=== PATIENT | male | born 1950 | race Caucasian/White ===

== ENCOUNTER 2016-02-20 09:02 | Outpatient (CLI) | payer MEDICARE, BC | END 2016-02-20 09:03 | disposition home or self-care (01) | DX: E11.9 Type 2 diabetes mellitus without complications (principal) ==

== ENCOUNTER 2016-02-23 09:59 | Outpatient (CLI) | payer MEDICARE, BC | END 2016-02-23 10:00 | disposition home or self-care (01) | DX: E11.9 Type 2 diabetes mellitus without complications (principal) ==

== ENCOUNTER 2016-06-14 08:20 | Outpatient (CLI) | payer MEDICARE, BC | END 2016-06-14 08:21 | disposition home or self-care (01) | DX: I25.10 Atherosclerotic heart disease of native coronary artery without angina pectoris (principal); E11.9 Type 2 diabetes mellitus without complications; E78.5 Hyperlipidemia, unspecified; I10 Essential (primary) hypertension; Z12.5 Encounter for screening for malignant neoplasm of prostate | CPT/HCPCS: 36415; 80053; 80061; 83036; G0103 ==

== ENCOUNTER 2016-09-13 09:02 | Outpatient (CLI) | payer MEDICARE, BC ==
[2016-09-13 20:11] LABS: HEMOGLOBIN A1C 0.81 g/dL
== END 2016-09-13 09:03 | disposition home or self-care (01) ==
LOC: LAB.S 09:02
PROVIDERS: ATTEND Family Medicine
DX: E11.9 Type 2 diabetes mellitus without complications (principal)
CPT/HCPCS: 36415; 83036

== ENCOUNTER 2017-01-03 09:08 | Outpatient (CLI) | payer MEDICARE, BC ==
[2017-01-03 18:43] LABS: HEMOGLOBIN A1C 0.77 g/dL
[2017-01-03 19:00] LABS: ALBUMIN/GLOBULIN RATIO 1.1 (1.0-2.2); BILIRUBIN,TOTAL 0.7 mg/dL (0.2-1.0); BUN - BLOOD UREA NITROGEN 23 mg/dL (6-20); CALCIUM 8.6 mg/dL (8.5-10.3); CARBON DIOXIDE - CO2 26 mmol/L (21-32); CHLORIDE 105 mmol/L (101-111); CHOL/HDL RATIO 4.8 (<5.0); CHOLESTEROL 134 mg/dL; CREATININE 1.2 mg/dL (0.6-1.2); GFR - MDRD 60 (>89); GLUCOSE 96 mg/dL (70-100); HDL CHOLESTEROL 28 mg/dL; LDL/HDL RATIO 2.5 (<3.6); POTASSIUM 4.5 mmol/L (3.5-5.0); SODIUM 136 mmol/L (135-145); TOTAL PROTEIN 7.2 g/dL (6.7-8.2); TRIGLYCERIDES 180 mg/dL; VLDL CHOLESTEROL 36 mg/dL
== END 2017-01-03 09:09 ==
LOC: LAB.S 09:08
PROVIDERS: ATTEND Family Medicine
DX: E11.9 Type 2 diabetes mellitus without complications (principal); E78.5 Hyperlipidemia, unspecified; I25.10 Atherosclerotic heart disease of native coronary artery without angina pectoris; I10 Essential (primary) hypertension
CPT/HCPCS: 36415; 80053; 80061; 82043; 83036

== ENCOUNTER 2017-01-27 13:20 | Outpatient (CLI) | payer MEDICARE, BC | END 2017-01-27 23:59 | disposition home or self-care (01) | LOC: RT 13:20 | PROVIDERS: ATTEND Internal Medicine Cardiovascular Disease | DX: I70.219 Atherosclerosis of native arteries of extremities with intermittent claudication, unspecified extremity (principal) | CPT/HCPCS: 93005 ==

== ENCOUNTER 2017-03-28 08:21 | Outpatient (CLI) | payer MEDICARE, BC ==
[2017-03-28 11:27] LABS: HB2 TOTAL 15.4 g/dL; HEMOGLOBIN A1C 0.82 g/dL
[2017-03-28 13:32] LABS: ALBUMIN 3.9 g/dL (3.2-5.5); ALBUMIN/GLOBULIN RATIO 1.1 (1.0-2.2); ALKALINE PHOSPHATASE 71 IU/L (42-121); ALT ALANINE AMINOTRANSFERASE 31 IU/L (10-60); AST ASPARTATE AMINOTRANSFERASE 24 IU/L (10-42); BILIRUBIN,TOTAL 0.8 mg/dL (0.2-1.0); BUN - BLOOD UREA NITROGEN 19 mg/dL (6-20); CALCIUM 8.8 mg/dL (8.5-10.3); CARBON DIOXIDE - CO2 27 mmol/L (21-32); CHLORIDE 101 mmol/L (101-111); CHOL/HDL RATIO 4.5 (<5.0); CHOLESTEROL 158 mg/dL; CREATININE 1.1 mg/dL (0.6-1.2); GFR - MDRD 67 (>89); GLUCOSE 138 mg/dL (70-100); HDL CHOLESTEROL 35 mg/dL; LDL CHOLESTEROL,CALCULATED 87 mg/dL; LDL/HDL RATIO 2.5 (<3.6); SODIUM 136 mmol/L (135-145); TOTAL PROTEIN 7.3 g/dL (6.7-8.2); VLDL CHOLESTEROL 36 mg/dL
== END 2017-03-28 08:22 | disposition home or self-care (01) ==
LOC: LAB.F 08:21
PROVIDERS: ATTEND Family Medicine
DX: I73.9 Peripheral vascular disease, unspecified (principal); E11.9 Type 2 diabetes mellitus without complications; I25.10 Atherosclerotic heart disease of native coronary artery without angina pectoris; I10 Essential (primary) hypertension
CPT/HCPCS: 36415; 80053; 80061; 83036; 83721

== ENCOUNTER 2017-06-13 08:00 | Outpatient (CLI) | payer MEDICARE, BC ==
[2017-06-13 11:04] LABS: CALCIUM 9.1 mg/dL (8.5-10.3); CREATININE 1.1 mg/dL (0.6-1.2)
[2017-06-13 11:18] LABS: HB2 TOTAL 16.5 g/dL; HEMOGLOBIN A1C 1.1 g/dL; HEMOGLOBIN A1C % 8.3 % (4.6-6.2)
== END 2017-06-13 08:01 | disposition home or self-care (01) ==
LOC: LAB.F 08:00
PROVIDERS: ATTEND Family Medicine
DX: E11.9 Type 2 diabetes mellitus without complications (principal); I73.9 Peripheral vascular disease, unspecified; I10 Essential (primary) hypertension; F32.9 Major depressive disorder, single episode, unspecified
CPT/HCPCS: 36415; 80048; 83036

== ENCOUNTER 2017-09-12 08:15 | Outpatient (CLI) | payer MEDICARE, BC ==
[2017-09-12 12:40] LABS: HB2 TOTAL 14.4 g/dL; HEMOGLOBIN A1C 0.84 g/dL; HEMOGLOBIN A1C % 7.5 % (4.6-6.2)
== END 2017-09-12 08:16 | disposition home or self-care (01) ==
LOC: LAB.F 08:15
PROVIDERS: ATTEND Family Medicine
DX: F32.9 Major depressive disorder, single episode, unspecified (principal); I73.9 Peripheral vascular disease, unspecified; I10 Essential (primary) hypertension; E11.9 Type 2 diabetes mellitus without complications
CPT/HCPCS: 36415; 83036

== ENCOUNTER 2017-12-13 09:02 | Outpatient (CLI) | payer MEDICARE, BC ==
[2017-12-13 17:49] LABS: BASOPHILS # (AUTO) 0.1 10^3/uL (0.0-0.1); BASOPHILS % (AUTO) 0.8 %; EOSINOPHILS # (AUTO) 0.1 10^3/uL (0.0-0.7); EOSINOPHILS % (AUTO) 0.7 %; HGB - HEMOGLOBIN 14.6 g/dL (14.0-18.0); LYMPHOCYTES # (AUTO) 1.2 10^3/uL (1.5-3.5); LYMPHOCYTES % (AUTO) 16.1 %; MEAN CORPUSCULAR HGB CONC 33.8 g/dL (32.0-36.0); MEAN CORPUSCULAR VOLUME 94.8 fL (80.0-94.0); MEAN PLATELET VOLUME 8.1 fL (7.4-11.4); MONOCYTES # (AUTO) 0.6 10^3/uL (0.0-1.0); MONOCYTES % (AUTO) 8.5 %; NEUTROPHILS # (AUTO) 5.6 10^3/uL (1.5-6.6); NEUTROPHILS % (AUTO) 73.9 %; PLT - PLATELET COUNT 163 10^3/uL (130-450); RED BLOOD COUNT 4.57 10^6/uL (4.70-6.10); RED CELL DISTRIBUTION WIDTH 13.9 % (12.0-15.0); WHITE BLOOD COUNT 7.6 x10^3/uL (4.8-10.8)
[2017-12-13 18:10] LABS: ALBUMIN 3.8 g/dL (3.2-5.5); ALBUMIN/GLOBULIN RATIO 1.1 (1.0-2.2); ALKALINE PHOSPHATASE 97 IU/L (42-121); ALT ALANINE AMINOTRANSFERASE 16 IU/L (10-60); AST ASPARTATE AMINOTRANSFERASE 15 IU/L (10-42); BILIRUBIN,TOTAL 0.5 mg/dL (0.2-1.0); BUN - BLOOD UREA NITROGEN 20 mg/dL (6-20); CALCIUM 8.6 mg/dL (8.5-10.3); CARBON DIOXIDE - CO2 28 mmol/L (21-32); CHLORIDE 103 mmol/L (101-111); CHOL/HDL RATIO 3.4 (<5.0); CHOLESTEROL 129 mg/dL; GFR - MDRD 74 (>89); GLUCOSE 128 mg/dL (70-100); HDL CHOLESTEROL 38 mg/dL; LDL CHOLESTEROL,CALCULATED 68 mg/dL; LDL/HDL RATIO 1.8 (<3.6); SODIUM 137 mmol/L (135-145); TOTAL PROTEIN 7.2 g/dL (6.7-8.2); VLDL CHOLESTEROL 23 mg/dL
[2017-12-13 18:49] LABS: HB2 TOTAL 15.7 g/dL; HEMOGLOBIN A1C 0.81 g/dL; HEMOGLOBIN A1C % 6.9 % (4.6-6.2)
== END 2017-12-13 09:03 | disposition home or self-care (01) ==
LOC: LAB.F 09:02
PROVIDERS: ATTEND Nurse Practitioner Family
DX: I10 Essential (primary) hypertension (principal); E11.9 Type 2 diabetes mellitus without complications; E78.5 Hyperlipidemia, unspecified
CPT/HCPCS: 36415; 80053; 80061; 82043; 83036; 83721; 84443; 85025

== ENCOUNTER 2018-06-12 07:20 | Outpatient (CLI) | payer MEDICARE, BC ==
[2018-06-12 10:54] LABS: HB2 TOTAL 13.8 g/dL; HEMOGLOBIN A1C 0.78 g/dL; HEMOGLOBIN A1C % 7.3 % (4.6-6.2)
== END 2018-06-12 07:21 | disposition home or self-care (01) ==
LOC: LAB.F 07:20
PROVIDERS: ATTEND Nurse Practitioner Family
DX: E11.9 Type 2 diabetes mellitus without complications (principal)
CPT/HCPCS: 36415; 83036

== ENCOUNTER 2018-09-14 10:54 | Outpatient (CLI) | payer MEDICARE, BC ==
[2018-09-14 17:51] LABS: ALBUMIN 3.9 g/dL (3.2-5.5); ALBUMIN/GLOBULIN RATIO 1.1 (1.0-2.2); ALKALINE PHOSPHATASE 96 IU/L (42-121); ALT ALANINE AMINOTRANSFERASE 22 IU/L (10-60); AST ASPARTATE AMINOTRANSFERASE 18 IU/L (10-42); BILIRUBIN,TOTAL 0.9 mg/dL (0.2-1.0); BUN - BLOOD UREA NITROGEN 18 mg/dL (6-20); CALCIUM 9.2 mg/dL (8.5-10.3); CARBON DIOXIDE - CO2 27 mmol/L (21-32); CHLORIDE 102 mmol/L (101-111); CHOL/HDL RATIO 3.8 (<5.0); CHOLESTEROL 133 mg/dL; CREATININE 1.1 mg/dL (0.6-1.2); GFR - MDRD 66 (>89); GLUCOSE 142 mg/dL (70-100); HDL CHOLESTEROL 35 mg/dL; LDL CHOLESTEROL,CALCULATED 77 mg/dL; LDL/HDL RATIO 2.2 (<3.6); SODIUM 139 mmol/L (135-145); TOTAL PROTEIN 7.5 g/dL (6.7-8.2); VLDL CHOLESTEROL 21 mg/dL
[2018-09-14 17:54] LABS: HB2 TOTAL 14.7 g/dL; HEMOGLOBIN A1C 0.81 g/dL; HEMOGLOBIN A1C % 7.2 % (4.6-6.2)
== END 2018-09-14 10:55 | disposition home or self-care (01) ==
LOC: LAB.S 10:54
PROVIDERS: ATTEND Internal Medicine
DX: E78.5 Hyperlipidemia, unspecified (principal); E11.9 Type 2 diabetes mellitus without complications
CPT/HCPCS: 36415; 80053; 80061; 83036; 83721

== ENCOUNTER 2019-03-30 09:14 | Outpatient (CLI) | payer MEDICARE, OTHER | END 2019-03-30 09:15 | disposition home or self-care (01) | LOC: LAB.S 09:14 | PROVIDERS: ATTEND Internal Medicine | DX: E11.9 Type 2 diabetes mellitus without complications (principal) ==

== ENCOUNTER 2019-04-12 09:44 | Outpatient (CLI) | payer MEDICARE, OTHER ==
[2019-04-12 17:42] LABS: ALBUMIN 3.9 g/dL (3.2-5.5); ALBUMIN/GLOBULIN RATIO 1.1 (1.0-2.2); ALKALINE PHOSPHATASE 87 IU/L (42-121); ALT ALANINE AMINOTRANSFERASE 14 IU/L (10-60); AST ASPARTATE AMINOTRANSFERASE 15 IU/L (10-42); BILIRUBIN,TOTAL 0.7 mg/dL (0.2-1.0); BUN - BLOOD UREA NITROGEN 13 mg/dL (6-20); CALCIUM 8.6 mg/dL (8.5-10.3); CARBON DIOXIDE - CO2 28 mmol/L (21-32); CHLORIDE 101 mmol/L (101-111); CHOL/HDL RATIO 3.6 (<5.0); CHOLESTEROL 127 mg/dL; CREATININE 1.1 mg/dL (0.6-1.2); GFR - MDRD 66 (>89); GLUCOSE 111 mg/dL (70-100); HDL CHOLESTEROL 35 mg/dL; LDL CHOLESTEROL,CALCULATED 64 mg/dL; LDL/HDL RATIO 1.8 (<3.6); SODIUM 136 mmol/L (135-145); TOTAL PROTEIN 7.3 g/dL (6.7-8.2); VLDL CHOLESTEROL 28 mg/dL
[2019-04-12 18:34] LABS: HB2 TOTAL 13.4 g/dL; HEMOGLOBIN A1C 0.66 g/dL; HEMOGLOBIN A1C % 6.7 % (4.6-6.2)
== END 2019-04-12 09:45 | disposition home or self-care (01) ==
LOC: LAB.S 09:44
PROVIDERS: ATTEND Internal Medicine
DX: E78.5 Hyperlipidemia, unspecified (principal); E11.9 Type 2 diabetes mellitus without complications
CPT/HCPCS: 36415; 80053; 80061; 83036; 83721

== ENCOUNTER 2019-12-14 07:39 | Outpatient (CLI) | payer MEDICARE, OTHER ==
[2019-12-14 15:33] LABS: BASOPHILS % (AUTO) 0.6 %; EOSINOPHILS # (AUTO) 0.1 10^3/uL (0.0-0.7); EOSINOPHILS % (AUTO) 1.6 %; HGB - HEMOGLOBIN 13.1 g/dL (14.0-18.0); LYMPHOCYTES # (AUTO) 1.3 10^3/uL (1.5-3.5); MEAN CORPUSCULAR HEMOGLOBIN 30.3 pg (27.0-31.0); MEAN CORPUSCULAR VOLUME 97.9 fL (80.0-94.0); MEAN PLATELET VOLUME 9.5 fL (7.4-11.4); MONOCYTES # (AUTO) 0.7 10^3/uL (0.0-1.0); MONOCYTES % (AUTO) 9.4 %; NEUTROPHILS # (AUTO) 4.9 10^3/uL (1.5-6.6); PLT - PLATELET COUNT 183 10^3/uL (130-450); RED BLOOD COUNT 4.32 10^6/uL (4.70-6.10); RED CELL DISTRIBUTION WIDTH 12.8 % (12.0-15.0)
[2019-12-14 15:56] LABS: ALBUMIN 3.8 g/dL (3.2-5.5); ALBUMIN/GLOBULIN RATIO 1.1 (1.0-2.2); ALKALINE PHOSPHATASE 92 IU/L (42-121); ALT ALANINE AMINOTRANSFERASE 15 IU/L (10-60); AST ASPARTATE AMINOTRANSFERASE 15 IU/L (10-42); BILIRUBIN,TOTAL 0.7 mg/dL (0.2-1.0); BUN - BLOOD UREA NITROGEN 20 mg/dL (6-20); CALCIUM 9.3 mg/dL (8.5-10.3); CARBON DIOXIDE - CO2 27 mmol/L (21-32); CHLORIDE 104 mmol/L (101-111); CHOL/HDL RATIO 3.6 (<5.0); CHOLESTEROL 123 mg/dL; CREATININE 1.1 mg/dL (0.6-1.2); GLUCOSE 104 mg/dL (70-100); HDL CHOLESTEROL 34 mg/dL; LDL CHOLESTEROL,CALCULATED 67 mg/dL; SODIUM 138 mmol/L (135-145); TOTAL PROTEIN 7.3 g/dL (6.7-8.2); VLDL CHOLESTEROL 22 mg/dL
[2019-12-14 19:55] LABS: HEMOGLOBIN A1c% 6.2 % (4.27-6.07)
== END 2019-12-14 07:40 | disposition home or self-care (01) ==
LOC: LAB.S 07:39
PROVIDERS: ATTEND Internal Medicine
DX: I10 Essential (primary) hypertension (principal); E11.9 Type 2 diabetes mellitus without complications; E78.5 Hyperlipidemia, unspecified
CPT/HCPCS: 36415; 80053; 80061; 83036; 83721; 85025

== ENCOUNTER 2020-03-19 07:40 | Outpatient (CLI) | payer MEDICARE, OTHER ==
[2020-03-19 16:22] LABS: BASOPHILS # (AUTO) 0.1 10^3/uL (0.0-0.1); BASOPHILS % (AUTO) 0.7 %; EOSINOPHILS # (AUTO) 0.1 10^3/uL (0.0-0.7); EOSINOPHILS % (AUTO) 1.2 %; HGB - HEMOGLOBIN 12.9 g/dL (14.0-18.0); LYMPHOCYTES # (AUTO) 1.8 10^3/uL (1.5-3.5); LYMPHOCYTES % (AUTO) 22.2 %; MEAN CORPUSCULAR HEMOGLOBIN 30.4 pg (27.0-31.0); MEAN CORPUSCULAR HGB CONC 30.4 g/dL (32.0-36.0); MEAN PLATELET VOLUME 9.9 fL (7.4-11.4); MONOCYTES # (AUTO) 0.7 10^3/uL (0.0-1.0); MONOCYTES % (AUTO) 9.1 %; NEUTROPHILS # (AUTO) 5.4 10^3/uL (1.5-6.6); NEUTROPHILS % (AUTO) 66.3 %; PLT - PLATELET COUNT 176 10^3/uL (130-450); RED BLOOD COUNT 4.25 10^6/uL (4.70-6.10); RED CELL DISTRIBUTION WIDTH 14.1 % (12.0-15.0); WHITE BLOOD COUNT 8.2 x10^3/uL (4.8-10.8)
[2020-03-19 16:55] LABS: ALBUMIN 3.8 g/dL (3.2-5.5); ALBUMIN/GLOBULIN RATIO 1.2 (1.0-2.2); BILIRUBIN,TOTAL 0.5 mg/dL (0.2-1.0); CALCIUM 8.6 mg/dL (8.5-10.3); CREATININE 1.2 mg/dL (0.6-1.2)
[2020-03-19 20:14] LABS: HEMOGLOBIN A1c% 6.2 % (4.27-6.07)
== END 2020-03-19 07:41 | disposition home or self-care (01) ==
LOC: LAB.S 07:40
PROVIDERS: ATTEND Internal Medicine
DX: I10 Essential (primary) hypertension (principal); E11.9 Type 2 diabetes mellitus without complications; Z12.5 Encounter for screening for malignant neoplasm of prostate
CPT/HCPCS: 36415; 80053; 83036; 85025; G0103; 84153

== ENCOUNTER 2020-10-12 12:20 | Outpatient (CLI) | payer MEDICARE, OTHER ==
[2020-10-12 17:57] LABS: BASOPHILS # (AUTO) 0.1 10^3/uL (0.0-0.1); BASOPHILS % (AUTO) 0.7 %; EOSINOPHILS # (AUTO) 0.1 10^3/uL (0.0-0.7); EOSINOPHILS % (AUTO) 1.2 %; HCT - HEMATOCRIT 43.2 % (42.0-52.0); HGB - HEMOGLOBIN 13.5 g/dL (14.0-18.0); LYMPHOCYTES # (AUTO) 1.3 10^3/uL (1.5-3.5); LYMPHOCYTES % (AUTO) 19.3 %; MEAN CORPUSCULAR HGB CONC 31.3 g/dL (32.0-36.0); MEAN CORPUSCULAR VOLUME 99.1 fL (80.0-94.0); MEAN PLATELET VOLUME 10.1 fL (7.4-11.4); MONOCYTES # (AUTO) 0.7 10^3/uL (0.0-1.0); MONOCYTES % (AUTO) 9.6 %; NEUTROPHILS # (AUTO) 4.6 10^3/uL (1.5-6.6); NEUTROPHILS % (AUTO) 68.9 %; PLT - PLATELET COUNT 166 10^3/uL (130-450); RED BLOOD COUNT 4.36 10^6/uL (4.70-6.10); RED CELL DISTRIBUTION WIDTH 13.6 % (12.0-15.0); WHITE BLOOD COUNT 6.7 x10^3/uL (4.8-10.8)
[2020-10-12 18:10] LABS: ALBUMIN 4.1 g/dL (3.2-5.5); ALBUMIN/GLOBULIN RATIO 1.2 (1.0-2.2); ALKALINE PHOSPHATASE 98 IU/L (42-121); ALT ALANINE AMINOTRANSFERASE 16 IU/L (10-60); AST ASPARTATE AMINOTRANSFERASE 18 IU/L (10-42); BILIRUBIN,TOTAL 0.7 mg/dL (0.2-1.0); BUN - BLOOD UREA NITROGEN 19 mg/dL (6-20); CALCIUM 8.7 mg/dL (8.5-10.3); CARBON DIOXIDE - CO2 28 mmol/L (21-32); CHLORIDE 101 mmol/L (101-111); CHOL/HDL RATIO 3.2 (<5.0); CHOLESTEROL 122 mg/dL; CREATININE 1.1 mg/dL (0.6-1.2); GFR - MDRD 66 (>89); GLUCOSE 111 mg/dL (70-100); HDL CHOLESTEROL 38 mg/dL; LDL CHOLESTEROL,CALCULATED 65 mg/dL; LDL/HDL RATIO 1.7 (<3.6); POTASSIUM 5.7 mmol/L (3.5-5.0); SODIUM 136 mmol/L (135-145); TOTAL PROTEIN 7.5 g/dL (6.7-8.2); TRIGLYCERIDES 93 mg/dL; VLDL CHOLESTEROL 19 mg/dL
[2020-10-12 19:44] LABS: ESTIMATED AVERAGE GLUCOSE 128 mg/dL (70-100); HEMOGLOBIN A1c% 6.1 % (4.27-6.07)
== END 2020-10-12 12:21 | disposition home or self-care (01) ==
LOC: LAB.S 12:20
PROVIDERS: ATTEND Internal Medicine
DX: I10 Essential (primary) hypertension (principal); E78.5 Hyperlipidemia, unspecified; E11.9 Type 2 diabetes mellitus without complications
CPT/HCPCS: 36415; 80053; 80061; 83036; 83721; 85025

== ENCOUNTER 2020-11-13 11:33 | Outpatient (CLI) | payer MEDICARE, OTHER ==
[2020-11-13] MEDS ORDERED: BUFFERED LIDOCAINE 10 ML SYRINGE IU ONE (12:09)
--- NOTE | 2020-11-13 12:50 | CT Report ---
PROCEDURE: Low Dose Lung Cancer Screen INDICATIONS: Smoking history TECHNIQUE: Noncontrast low-dose images were acquired from the pulmonary apices to the posterior costophrenic ang les. Multiplanar MIP reformats were then acquired. For radiation dose reduction, the following was used: automated exposure control, adjustment of mA and/or kV according to patient size. COMPARISON: CT chest 03/19/2011. FINDINGS: Image quality: Excellent. Lungs and pleura: Left hilar spiculated mass measuring 3.3 x 3.1 cm, (4/171). Severe emphysematous change. Left upper lobe subpleural pulmonary nodule measuring 0.3 cm, (4/146). S mall calcified granulomas. Central airways are clear. Bronchial wall thickening. Prominent distal air ways. Mediastinum: Heart size is normal. Three-vessel coronary artery calcifications. No pericardial effu garry. No mediastinal adenopathy by size criteria. Right lower paratracheal node measuring 0.8 cm jose rt axis diameter, (3/27). Thoracic aorta and central pulmonary arteries are normal in size. Esophagu s is normal in caliber. No hiatal hernia. Bones and chest wall: No suspicious bony lesions. No vertebral body compression fractures. No axil geo or supraclavicular adenopathy by size criteria. The thyroid is normal in size and there are no incidental findings. Abdomen: Large low-density right renal cyst partially visualized. Visualized upper abdomen solid org ans and bowel loops appear normal in the absence of contrast. IMPRESSION: 1. Left hilar spiculated mass measuring 3.3 cm. This is highly suspicious for lung cancer. Lung RADS 4B. Recommend CT chest with IV contrast. Recommend PET/CT. 2. Severe emphysematous change. 3. Three-vessel coronary artery calcifications. Results were conveyed to ANTOINETTE Simmons at 11/13/2020 12:45 PM PDT. Reviewed by: Apollo Gonzalez MD on 11/13/2020 12:49 PM PDT Approved by: Apollo Gonzalez MD on 11/13/2020 12:49 PM PDT Station ID: [id number]
== END 2020-11-13 11:34 | disposition home or self-care (01) ==
LOC: DI 11:33
PROVIDERS: ATTEND Internal Medicine
DX: Z12.2 Encounter for screening for malignant neoplasm of respiratory organs (principal); F17.210 Nicotine dependence, cigarettes, uncomplicated; R91.8 Other nonspecific abnormal finding of lung field; J43.9 Emphysema, unspecified; I25.10 Atherosclerotic heart disease of native coronary artery without angina pectoris

== ENCOUNTER 2021-01-05 12:37 | Outpatient (CLI) | payer MEDICARE, OTHER ==
[2021-01-05 12:58] LABS: CREATININE 1.3 mg/dL (0.6-1.2)
[2021-01-05] MEDS ORDERED: GADOBUTROL 10 MMOL/10 ML VIAL ONE (14:36)
--- NOTE | 2021-01-05 16:12 | MRI Report ---
PROCEDURE: Brain W/WO INDICATIONS: CA OF JE LUNG CONTRAST: IV CONTRAST: Gadavist ml: 7.9 TECHNIQUE: Noncontrast axial T1 spin echo, axial T2 fast spin echo, sagittal and axial FLAIR, coronal T2 fast sp in echo, axial gradient echo, axial diffusion and ADC through the brain. After the administration of contrast, axial and coronal T1 spin echo with fat saturation through the brain. COMPARISON: None. FINDINGS: Image quality: Excellent. CSF spaces: Basal cisterns are patent. No extra-axial fluid collections. Ventricles are normal in size and shape. Brain: No midline shift. No intracranial bleeds. There is a 2 mm diameter focus of enhancement with in the left internal auditory canal (series 1002 image 29, series 1003 image 66). There is cerebral v olume loss for age. There is periventricular white matter chronic small vessel ischemic change. The brainstem appears normal. Diffusion-weighted images demonstrate no acute ischemic insults. No stock layer jose ischemic insults. Normal intravascular flow voids are present. Skull and face: Calvarial marrow is normal in signal. Orbits appear normal. Sinuses: Small retention cyst within the right anterior maxillary sinus. Sinuses and mastoids otherw ise appear clear. IMPRESSION: 1. Mild volume loss and small vessel ischemic disease. 2. No acute process. No recent infarct. 3. Findings suggestive of a small left-sided intracanalicular acoustic neuroma versus schwannoma. Thi s could be further assessed with MRI of the internal auditory canals with and without intravenous con trast, if clinically indicated. 4. No evidence of metastatic disease. Reviewed by: Jamaal Maya MD on 01/05/2021 4:11 PM PST Approved by: Jamaal Maya MD on 01/05/2021 4:11 PM PST Station ID: [id number]
[2021-01-05] MEDS ORDERED: GADOBUTROL 10 MMOL/10 ML VIAL IVP ONE (17:43)
== END 2021-01-05 12:38 | disposition home or self-care (01) ==
LOC: LAB 12:37
PROVIDERS: ATTEND Surgery
DX: C34.12 Malignant neoplasm of upper lobe, left bronchus or lung (principal); R90.89 Other abnormal findings on diagnostic imaging of central nervous system
CPT/HCPCS: 36415; 82565

== ENCOUNTER 2021-01-05 12:56 | Outpatient (CLI) | payer MEDICARE, OTHER ==
[2021-01-05] MEDS ORDERED: ALBUTEROL 1 PUFF INH STA (15:20)
== END 2021-01-05 12:57 | disposition home or self-care (01) ==
LOC: RT 12:56
PROVIDERS: ATTEND Surgery
DX: C34.12 Malignant neoplasm of upper lobe, left bronchus or lung (principal); R90.89 Other abnormal findings on diagnostic imaging of central nervous system
CPT/HCPCS: 36415; 70553; 82565; 94060; 94729; A9585

== ENCOUNTER 2021-03-28 09:05 | Outpatient (CLI) | payer MEDICARE, OTHER ==
[2021-03-28 15:32] LABS: BASOPHILS # (AUTO) 0.1 10^3/uL (0.0-0.1); BASOPHILS % (AUTO) 0.8 %; EOSINOPHILS # (AUTO) 0.2 10^3/uL (0.0-0.7); EOSINOPHILS % (AUTO) 3.2 %; HGB - HEMOGLOBIN 13.6 g/dL (14.0-18.0); LYMPHOCYTES # (AUTO) 1.1 10^3/uL (1.5-3.5); LYMPHOCYTES % (AUTO) 13.9 %; MEAN CORPUSCULAR HEMOGLOBIN 31.1 pg (27.0-31.0); MEAN CORPUSCULAR HGB CONC 31.6 g/dL (32.0-36.0); MEAN CORPUSCULAR VOLUME 98.4 fL (80.0-94.0); MEAN PLATELET VOLUME 9.8 fL (7.4-11.4); MONOCYTES # (AUTO) 0.8 10^3/uL (0.0-1.0); MONOCYTES % (AUTO) 10.7 %; NEUTROPHILS # (AUTO) 5.4 10^3/uL (1.5-6.6); PLT - PLATELET COUNT 169 10^3/uL (130-450); RED BLOOD COUNT 4.37 10^6/uL (4.70-6.10); WHITE BLOOD COUNT 7.6 x10^3/uL (4.8-10.8)
[2021-03-28 16:06] LABS: ALBUMIN 3.8 g/dL (3.2-5.5); ALKALINE PHOSPHATASE 95 IU/L (42-121); ALT ALANINE AMINOTRANSFERASE 14 IU/L (10-60); AST ASPARTATE AMINOTRANSFERASE 15 IU/L (10-42); BILIRUBIN,TOTAL 0.6 mg/dL (0.2-1.0); BUN - BLOOD UREA NITROGEN 16 mg/dL (6-20); CARBON DIOXIDE - CO2 31 mmol/L (21-32); CHLORIDE 104 mmol/L (101-111); CHOL/HDL RATIO 3.7 (<5.0); CHOLESTEROL 134 mg/dL; CREATININE 1.1 mg/dL (0.6-1.2); GFR - MDRD 66 (>89); GLUCOSE 119 mg/dL (70-100); HDL CHOLESTEROL 36 mg/dL; LDL CHOLESTEROL,CALCULATED 75 mg/dL; LDL/HDL RATIO 2.1 (<3.6); POTASSIUM 4.7 mmol/L (3.5-5.0); SODIUM 140 mmol/L (135-145); TOTAL PROTEIN 7.5 g/dL (6.7-8.2); TRIGLYCERIDES 116 mg/dL; VLDL CHOLESTEROL 23 mg/dL
[2021-03-28 21:14] LABS: ESTIMATED AVERAGE GLUCOSE 137 mg/dL (70-100); HEMOGLOBIN A1c% 6.4 % (4.27-6.07)
== END 2021-03-28 09:06 | disposition home or self-care (01) ==
LOC: LAB.S 09:05
PROVIDERS: ATTEND Internal Medicine
DX: I10 Essential (primary) hypertension (principal); E78.5 Hyperlipidemia, unspecified; E11.9 Type 2 diabetes mellitus without complications
CPT/HCPCS: 36415; 80053; 80061; 83036; 83721; 85025

== ENCOUNTER → 2021-07-02 | Outpatient (CLI) | payer MEDICARE, OTHER ==
[2021-07-02 22:11] LABS: CALCIUM 8.8 mg/dL (8.5-10.3); POTASSIUM 4.4 mmol/L (3.5-5.0)
== END ==
LOC: LAB.R 20:24
PROVIDERS: ATTEND Hospitalist
DX: I10 Essential (primary) hypertension (principal)
CPT/HCPCS: 80048

== ENCOUNTER 2021-10-23 15:13 | Outpatient (CLI) | payer MEDICARE, OTHER ==
--- NOTE | 2021-10-26 11:06 | CT Report ---
PROCEDURE: CHEST WO INDICATIONS: LUNG CA TECHNIQUE: Noncontrast 1mm axial images were acquired from the pulmonary apices to the posterior costophrenic an gles. Axial 5 mm soft tissue kernel reconstructions were performed as well as 8 mm axial MIP and cor onal and sagittal 5 mm reformations. For radiation dose reduction, the following was used: automate d exposure control, adjustment of mA and/or kV according to patient size. COMPARISON: CT chest, 11/13/2009 21. Retroperitoneal ultrasound, 06/26/2014. FINDINGS: Image quality: Excellent. Lungs and pleura: Postsurgical changes are seen related to left upper lobe lobectomy. Subpleural and left parahilar densities in the left upper lung zone are compatible with postradiation change/scars/ atelectasis. Severe emphysema. No acute air space opacities. Dependent atelectasis at lung bases. No pleural effu sions or pneumothorax. Central and peripheral airways are patent and normal in caliber. Mediastinum: Heart size is normal. There are coronary calcification. Possible stenting of LAD. No pe ricardial effusion. No mediastinal adenopathy by size criteria. Thoracic aorta and central pulmonar y arteries are normal in size. Esophagus is normal in caliber. Small hiatal hernia. Bones and chest wall: No suspicious bony lesions. No vertebral body compression fractures. No axil geo or supraclavicular adenopathy by size criteria. The thyroid is normal in size and there are no incidental findings. Abdomen: There is a large simple appearance cyst in the superior pole of the left kidney measuring 8 .2 x 10.8 cm demonstrating mural calcification. Visualized upper abdominal solid organs and bowel loo ps appear normal in the absence of contrast. IMPRESSION: 1. No findings to suggest recurrent lung cancer. 2. Left upper lobe lobectomy. Suspect post radiation change/scarring/atelectasis in the left upper isidoro ng zone and left perihilar area. 3. No lymphadenopathy. 4. Severe emphysema. 5. Severe coronary disease. 6. Partial visualization of a large cyst in the superior pole of the right kidney. Reviewed by: Irvin Lowe MD on 10/26/2021 11:05 AM PDT Approved by: Irvin Lowe MD on 10/26/2021 11:05 AM PDT Station ID: [id number]
== END 2021-10-23 15:14 | disposition home or self-care (01) ==
LOC: DI 15:13
PROVIDERS: ATTEND Physician Assistant
DX: C34.12 Malignant neoplasm of upper lobe, left bronchus or lung (principal); Z90.2 Acquired absence of lung [part of]; J43.9 Emphysema, unspecified; I51.9 Heart disease, unspecified

== ENCOUNTER 2021-10-27 13:11 | Outpatient (CLI) | payer MEDICARE, OTHER ==
[2021-10-27 19:56] LABS: CREATININE 1.1 mg/dL (0.6-1.2)
[2021-10-27 20:07] LABS: ESTIMATED AVERAGE GLUCOSE 128 mg/dL (70-100); HEMOGLOBIN A1c% 6.1 % (4.27-6.07)
== END 2021-10-27 13:12 | disposition home or self-care (01) ==
LOC: LAB.S 13:11
PROVIDERS: ATTEND Registered Nurse
DX: E11.9 Type 2 diabetes mellitus without complications (principal)
CPT/HCPCS: 36415; 80048; 82043; 82570; 83036

== ENCOUNTER 2022-05-14 14:26 | Outpatient (CLI) | payer MEDICARE, OTHER ==
--- NOTE | 2022-05-14 16:06 | CT Report ---
PROCEDURE: CHEST WO INDICATIONS: LUNG CA TECHNIQUE: Noncontrast 1mm axial images were acquired from the pulmonary apices to the posterior costophrenic an gles. Axial 5 mm soft tissue kernel reconstructions were performed as well as 8 mm axial MIP and cor onal and sagittal 5 mm reformations. For radiation dose reduction, the following was used: automate d exposure control, adjustment of mA and/or kV according to patient size. COMPARISON: CT lung screen dated 11/13/2020, CT chest without contrast dated 10/23/2021 FINDINGS: Image quality: Excellent. Lungs and pleura: Remote left upper lobectomy. Marked right apical centrilobular emphysema, diffuse e mphysematous change. No evidence of recurrent lung mass. No metastatic pulmonary nodules identified. No pleural effusions. No pneumothorax. No suspicious pulmonary nodules which require follow up. Mediastinum: Heart size is normal. No pericardial effusions. Advanced coronary artery calcifications. No mediastinal adenopathy by size criteria. No large vessel abnormality. Chest wall and lower neck: Thyroid is unremarkable. No axillary or supraclavicular adenopathy by size . Bones: No aggressive osseous abnormality. Upper Abdomen: Partially imaged exophytic cyst off the right kidney measures at least 9.2 cm. There i s wall calcification present. IMPRESSION: 1. Remote left upper lobectomy. 2. No evidence of recurrent or metastatic lung cancer. 3. Marked right apical centrilobular emphysema, diffuse emphysematous change. 4. Advanced coronary artery calcifications. 5. Incompletely imaged very large right renal cyst with wall calcifications. Comment: Consider renal ultrasound to further evaluate the cystic lesion off the right kidney. Reviewed by: Kulwant Ordaz MD on 05/14/2022 4:05 PM PDT Approved by: Kulwant Ordaz MD on 05/14/2022 4:05 PM PDT Station ID: [id number]
== END 2022-05-14 14:27 | disposition home or self-care (01) ==
LOC: DI 14:26
PROVIDERS: ATTEND Registered Nurse
DX: C34.90 Malignant neoplasm of unspecified part of unspecified bronchus or lung (principal); J43.2 Centrilobular emphysema; I25.10 Atherosclerotic heart disease of native coronary artery without angina pectoris; N28.1 Cyst of kidney, acquired; Z90.2 Acquired absence of lung [part of]

== ENCOUNTER 2022-05-19 07:37 | Outpatient (CLI) | payer MEDICARE, OTHER ==
[2022-05-19 14:58] LABS: BASOPHILS # (AUTO) 0.1 10^3/uL (0.0-0.1); BASOPHILS % (AUTO) 0.9 %; EOSINOPHILS # (AUTO) 0.1 10^3/uL (0.0-0.7); EOSINOPHILS % (AUTO) 2.2 %; HCT - HEMATOCRIT 40.9 % (42.0-52.0); LYMPHOCYTES # (AUTO) 1.2 10^3/uL (1.5-3.5); LYMPHOCYTES % (AUTO) 21.3 %; MEAN CORPUSCULAR HEMOGLOBIN 31.3 pg (27.0-31.0); MEAN CORPUSCULAR HGB CONC 31.8 g/dL (32.0-36.0); MEAN CORPUSCULAR VOLUME 98.3 fL (80.0-94.0); MEAN PLATELET VOLUME 9.9 fL (7.4-11.4); MONOCYTES # (AUTO) 0.7 10^3/uL (0.0-1.0); MONOCYTES % (AUTO) 12.3 %; NEUTROPHILS # (AUTO) 3.4 10^3/uL (1.5-6.6); NEUTROPHILS % (AUTO) 62.9 %; PLT - PLATELET COUNT 143 10^3/uL (130-450); RED BLOOD COUNT 4.16 10^6/uL (4.70-6.10); RED CELL DISTRIBUTION WIDTH 13.3 % (12.0-15.0); WHITE BLOOD COUNT 5.4 x10^3/uL (4.8-10.8)
[2022-05-19 15:30] LABS: THYROID STIMULATING HORMONE 3.02 uIU/mL (0.34-5.60)
[2022-05-19 15:36] LABS: ALBUMIN 3.8 g/dL (3.2-5.5); ALBUMIN/GLOBULIN RATIO 1.2 (1.0-2.2); ALKALINE PHOSPHATASE 89 IU/L (42-121); ALT ALANINE AMINOTRANSFERASE 34 IU/L (10-60); AST ASPARTATE AMINOTRANSFERASE 21 IU/L (10-42); BILIRUBIN,TOTAL 0.5 mg/dL (0.2-1.0); BUN - BLOOD UREA NITROGEN 24 mg/dL (6-20); CALCIUM 8.3 mg/dL (8.5-10.3); CARBON DIOXIDE - CO2 30 mmol/L (21-32); CHLORIDE 102 mmol/L (101-111); CHOL/HDL RATIO 3.9 (<5.0); CHOLESTEROL 131 mg/dL; CREATININE 1.1 mg/dL (0.6-1.2); GFR - MDRD 66 (>89); GLUCOSE 126 mg/dL (70-100); HDL CHOLESTEROL 34 mg/dL; LDL CHOLESTEROL,CALCULATED 70 mg/dL; LDL/HDL RATIO 2.1 (<3.6); POTASSIUM 5.2 mmol/L (3.5-5.0); SODIUM 137 mmol/L (135-145); TOTAL PROTEIN 7.1 g/dL (6.7-8.2); TRIGLYCERIDES 134 mg/dL; VLDL CHOLESTEROL 27 mg/dL
[2022-05-19 20:52] LABS: ESTIMATED AVERAGE GLUCOSE 117 mg/dL (70-100); HEMOGLOBIN A1c% 5.7 % (4.27-6.07)
== END 2022-05-19 07:38 | disposition home or self-care (01) ==
LOC: LAB.S 07:37
PROVIDERS: ATTEND Registered Nurse
DX: I10 Essential (primary) hypertension (principal); E78.5 Hyperlipidemia, unspecified; E11.9 Type 2 diabetes mellitus without complications
CPT/HCPCS: 36415; 80053; 80061; 83036; 83721; 84443; 85025

== ENCOUNTER 2022-06-03 13:02 | Outpatient (CLI) | payer MEDICARE, OTHER ==
--- NOTE | 2022-06-03 15:12 | Ultrasound Report ---
PROCEDURE: Retroperitoneal INDICATIONS: CYST OF KIDNEY TECHNIQUE: Real-time scanning was performed of the retroperitoneal organs, with image documentation. COMPARISON: None. FINDINGS: Kidneys: Kidneys are normal in size. Right kidney measures 12.3 cm long; left kidney measures 11.1 cm long. Right renal cortical thickness is 2.3 cm; left renal cortical thickness is 2.1 cm. No yarelis d masses, hydronephrosis, or nephrolithiasis. Bilateral renal cystic lesions. The largest cyst on th e superior pole of the right kidney measures 10.6 cm, with probable mildly thickened septations. Bladder: Pre-void bladder volume is 389 mL. Post-void residual is 30 mL. Pre-void images demonstra te no intraluminal masses or stones. On pre-void images, the ureteral jets are noted with color Dopp ler interrogation. (Of note, ureteral jets may not be detectable in up to 25% of cases due to insuff icient differences in specific gravity between ureteral and bladder urine). Miscellaneous: No free abdominal fluid. IMPRESSION: Large right renal cystic lesions, largest measuring 10.6 cm. Given the presence of internal septation s and the size, consider follow-up with MRI with contrast (renal mass protocol) for a Bosniak score w ith follow-up guidelines. Reviewed by: Alessio Otero on 06/03/2022 3:10 PM PDT Approved by: Alessio Otero on 06/03/2022 3:10 PM PDT Station ID: [id number]
== END 2022-06-03 13:03 | disposition home or self-care (01) ==
LOC: DI 13:02
PROVIDERS: ATTEND Registered Nurse
DX: N28.1 Cyst of kidney, acquired (principal)

== ENCOUNTER 2022-06-25 12:39 | Outpatient (CLI) | payer MEDICARE, OTHER ==
[~2022-06-25 12:39] MED LIST: GADOBUTROL 10 MMOL/10 ML VIAL ONE
[2022-06-25 13:09] LABS: CREATININE 1.2 mg/dL (0.6-1.2)
[2022-06-25] MEDS ORDERED: GADOBUTROL 10 MMOL/10 ML VIAL IVP ONE (14:40)
--- NOTE | 2022-06-25 17:12 | MRI Report ---
PROCEDURE: ABDOMEN W/WO INDICATIONS: RIGHT RENAL CYST CONTRAST: GADAVIST 8.0 ML TECHNIQUE: Coronal ultra fast SE, axial 2D spoiled GE in- and [id number]; axial breath-hold T2 fast SE. Dynam ic axial ultra fast GE during the administration of contrast; post-contrast coronal ultra fast GE or 2D spoiled GE with fat saturation from the hepatic dome to the iliac crests. Optional diffusion weig hted imaging and ADC may be performed. COMPARISON: Renal ultrasound 06/03/2022 FINDINGS: Lung bases : No pleural effusion. Liver: No solid mass. Gallbladder and biliary tree: No stones or wall thickening. No biliary dilation. Spleen: No splenomegaly. Pancreas: No pancreatic ductal dilation. Adrenals: No adrenal nodule. Kidneys: A large cyst versus two adjacent cysts is redemonstrated at the right mid-inferior kidney. I n aggregate, this finding measures up to approximately 13.2 cm craniocaudally. No thick enhancing sep tations or soft tissue nodularity identified. Findings are consistent with Bosniak category 1-2. A he morrhagic/proteinaceous cyst is present at the right mid kidney, Bosniak category 2. Other smaller si mple appearing renal cortical cysts present bilaterally. Bowel and peritoneum: No bowel distension. No pathologic free fluid. Lymph nodes: No central or retroperitoneal adenopathy. Vessels: No infrarenal aortic aneurysm. Bones: No aggressive osseous abnormality. IMPRESSION: Redemonstrated large cyst(s) at the right kidney, without suspicious features identified. Per Bosniak criteria, imaging follow-up is not necessary for this finding. Reviewed by: Benjamin Bloden MD on 06/25/2022 5:11 PM PDT Approved by: Benjamin Bolden MD on 06/25/2022 5:11 PM PDT Station ID: [id number]
== END 2022-06-25 12:40 | disposition home or self-care (01) ==
LOC: LAB 12:39
PROVIDERS: ATTEND Registered Nurse
DX: N28.1 Cyst of kidney, acquired (principal)
CPT/HCPCS: 36415; 74183; 82565; A9585

== ENCOUNTER 2022-11-11 10:32 | Outpatient (CLI) | payer MEDICARE, OTHER ==
[2022-11-11 14:28] LABS: BASOPHILS # (AUTO) 0.1 10^3/uL (0.0-0.1); EOSINOPHILS # (AUTO) 0.2 10^3/uL (0.0-0.7); EOSINOPHILS % (AUTO) 2.7 %; HCT - HEMATOCRIT 42.8 % (42.0-52.0); HGB - HEMOGLOBIN 13.5 g/dL (14.0-18.0); LYMPHOCYTES # (AUTO) 0.9 10^3/uL (1.5-3.5); LYMPHOCYTES % (AUTO) 15.6 %; MEAN CORPUSCULAR HEMOGLOBIN 30.8 pg (27.0-31.0); MEAN CORPUSCULAR HGB CONC 31.5 g/dL (32.0-36.0); MEAN CORPUSCULAR VOLUME 97.7 fL (80.0-94.0); MEAN PLATELET VOLUME 9.6 fL (7.4-11.4); MONOCYTES # (AUTO) 0.6 10^3/uL (0.0-1.0); MONOCYTES % (AUTO) 10.5 %; NEUTROPHILS # (AUTO) 4.1 10^3/uL (1.5-6.6); NEUTROPHILS % (AUTO) 69.9 %; PLT - PLATELET COUNT 151 10^3/uL (130-450); RED BLOOD COUNT 4.38 10^6/uL (4.70-6.10); WHITE BLOOD COUNT 5.9 x10^3/uL (4.8-10.8)
[2022-11-11 14:50] LABS: ALBUMIN 4.1 g/dL (3.2-5.5); ALBUMIN/GLOBULIN RATIO 1.4 (1.0-2.2); ALKALINE PHOSPHATASE 107 IU/L (42-121); ALT ALANINE AMINOTRANSFERASE 12 IU/L (10-60); AST ASPARTATE AMINOTRANSFERASE 12 IU/L (10-42); BILIRUBIN,TOTAL 0.7 mg/dL (0.2-1.0); BUN - BLOOD UREA NITROGEN 13 mg/dL (6-20); CALCIUM 9.1 mg/dL (8.5-10.3); CARBON DIOXIDE - CO2 36 mmol/L (21-32); CHLORIDE 104 mmol/L (101-111); CHOLESTEROL 116 mg/dL; GFR - MDRD 73 (>89); GLUCOSE 86 mg/dL (74-104); HDL CHOLESTEROL 39 mg/dL; LDL CHOLESTEROL,CALCULATED 59 mg/dL; LDL/HDL RATIO 1.5 (<3.6); POTASSIUM 4.5 mmol/L (3.5-4.5); SODIUM 142 mmol/L (135-145); TOTAL PROTEIN 7.1 g/dL (6.4-8.9); TRIGLYCERIDES 89 mg/dL (48-352); VLDL CHOLESTEROL 18 mg/dL
[2022-11-11 14:58] LABS: THYROID STIMULATING HORMONE 1.86 uIU/mL (0.34-5.60)
== END 2022-11-11 10:33 | disposition home or self-care (01) ==
LOC: LAB.S 10:32
PROVIDERS: ATTEND Registered Nurse
DX: Z79.899 Other long term (current) drug therapy (principal); Z13.220 Encounter for screening for lipoid disorders; Z13.29 Encounter for screening for other suspected endocrine disorder
CPT/HCPCS: 36415; 80053; 80061; 83721; 84443; 85025

== ENCOUNTER 2022-12-06 11:39 | Outpatient (CLI) | payer MEDICARE, OTHER ==
--- NOTE | 2022-12-06 16:18 | CT Report ---
PROCEDURE: CHEST WO INDICATIONS: LUNG CA TECHNIQUE: Noncontrast 1mm axial images were acquired from the pulmonary apices to the posterior costophrenic an gles. Axial 5 mm soft tissue kernel reconstructions were performed as well as 8 mm axial MIP and cor onal and sagittal 5 mm reformations. For radiation dose reduction, the following was used: automate d exposure control, adjustment of mA and/or kV according to patient size. COMPARISON: 05/14/2022 FINDINGS: Image quality: Excellent. Lungs and pleura: Severe paraseptal emphysema predominantly involving the right upper lobe and modera tely the left lung. Prior left upper lobectomy and asymmetric left hemidiaphragm elevation. No recurr ent mass. Irregular thickening in the left hilar region involving the bronchial moreno narrowing lobar bronchi. No postobstructive consolidations. Right hemithorax demonstrates mild peripheral reticulati on and middle and lower lobe septal thickening. No pleural effusions. No pneumothorax. No suspicious pulmonary nodules which require follow up. Mediastinum: Heart size is normal with moderate to heavy coronary artery calcification No pericardial effusion. Mild enlargement of the pulmonary outflow tract consistent with secondary pulmonary hypert ension. The thoracic aorta is normal caliber. No mediastinal adenopathy by size criteria. Chest wall and lower neck: Thyroid is unremarkable. No axillary or supraclavicular adenopathy by size . Bones: No aggressive osseous abnormality. Upper Abdomen: Stable large right renal cyst is partially imaged. Upper abdomen is otherwise normal. IMPRESSION: 1. Prior left upper lobectomy without evidence of residual or recurrent disease. 2. Chronic soft tissue thickening in the left hilum, presumably postsurgical. 3. Severe paraseptal emphysematous changes and secondary pulmonary artery hypertension. 4. Moderate to heavy coronary artery calcification. Reviewed by: Dinae Wilkinson MD on 12/06/2022 4:16 PM PDT Approved by: Diane Wilkinson MD on 12/06/2022 4:16 PM PDT Station ID: [id number]
== END 2022-12-06 11:40 | disposition home or self-care (01) ==
LOC: DI 11:39
PROVIDERS: ATTEND Registered Nurse
DX: C34.90 Malignant neoplasm of unspecified part of unspecified bronchus or lung (principal); J43.9 Emphysema, unspecified; I27.20 Pulmonary hypertension, unspecified; I25.10 Atherosclerotic heart disease of native coronary artery without angina pectoris; Z90.2 Acquired absence of lung [part of]

== ENCOUNTER 2023-01-02 12:27 | Outpatient (CLI) | payer MEDICARE, OTHER ==
--- NOTE | 2023-01-02 20:47 | Ultrasound Report ---
PROCEDURE: Duplex Lwr Ext Arterial Bilat INDICATIONS: CHRONIC WOUND TECHNIQUE: Color and pulse Doppler interrogation was performed of both lower extremity arterial systems, with im age documentation. COMPARISON: Ultrasound [facility]ER[facility] on July 04, 2014 FINDINGS: Right lower extremity: Common femoral artery: 152 cm/sec, with biphasic flow. Deep femoral artery: 150 cm/sec, with biphasic flow. Proximal superficial femoral artery: 96 cm/sec, with biphasic flow. Mid superficial femoral artery: 154 cm/sec, with biphasic flow. Distal superficial femoral artery: 91 cm/sec, with biphasic flow. Popliteal artery: 70 cm/sec, with biphasic flow. Posterior tibial artery: 65 cm/sec, with biphasic flow. Anterior tibial artery/dorsalis pedis: 23/32 cm/sec, with biphasic/biphasic flow. Haskins-scale imaging description: Scattered calcified plaque. Left lower extremity: Common femoral artery: 148 cm/sec, with biphasic flow. Deep femoral artery: 147 cm/sec, with biphasic flow. Proximal superficial femoral artery: 106 cm/sec, with biphasic flow. Mid superficial femoral artery: 88 cm/sec, with biphasic flow. Distal superficial femoral artery: 129 cm/sec, with biphasic flow. Popliteal artery: 58 cm/sec, with biphasic flow. Posterior tibial artery: 26 cm/sec, with biphasic flow. Anterior tibial artery/dorsalis pedis: 28/31 cm/sec, with biphasic/biphasic flow. Haskins-scale imaging description: Scattered calcified plaque. IMPRESSION: Multiphasic waveforms of the bilateral lower extremity arterial vasculature with no velocity shift to suggest a hemodynamically significant stenosis. Reviewed by: Jacque Almanza MD on 01/02/2023 8:46 PM PST Approved by: Jacque Almanza MD on 01/02/2023 8:46 PM PST Station ID: [id number]
--- NOTE | 2023-01-02 20:50 | Ultrasound Report ---
PROCEDURE: Ankle Brachial Index INDICATIONS: CHRONIC WOUND TECHNIQUE: Ankle-brachial indices were obtained bilaterally and recorded. COMPARISONS: [facility] on July 04, 2014. FINDINGS: Right brachial: 116 mmHg Right ankle: 113 mmHg Right ankle brachial index (RODERICK): 0.8, previously 0.92 Left brachial: ): 127mmHg Left ankle: ): 113mmHg Left ankle brachial index (RODERICK): 0.8, previously 0.69 Healing potential: Ankle pressures >55 mm Hg in non-diabetics and >80 mm Hg in diabetics are likely to achieve primary h ealing of ischemic foot ulcers. Toe pressures >30 mm Hg are likely to achieve primary healing of ischemic foot ulcers, toe or transme tatarsal amputations. IMPRESSION: 1. Right lower extremity resting RODERICK is mildly reduced at 0.8, previously 0.9. 2. Left lower extremity resting RODERICK is mildly reduced at 0.8, previously 0.7. Reviewed by: Jacque Almanza MD on 01/02/2023 8:48 PM PST Approved by: Jacque Almanza MD on 01/02/2023 8:48 PM PST Station ID: [id number]
== END 2023-01-02 12:28 | disposition home or self-care (01) ==
LOC: DI 12:27
PROVIDERS: ATTEND Physician Assistant Medical
DX: S81.802A Unspecified open wound, left lower leg, initial encounter (principal); Z95.828 Presence of other vascular implants and grafts
CPT/HCPCS: 93922; 93925

== ENCOUNTER 2023-01-12 13:53 | Outpatient (CLI) | payer MEDICARE, OTHER ==
--- NOTE | 2023-01-12 19:38 | XRAY Report ---
PROCEDURE: Ankle 3 View LT INDICATIONS: DIABETIC FOOT ULCER TECHNIQUE: 3 views of the ankle were acquired. COMPARISON: None FINDINGS: Bones: No fractures or dislocations. Ankle mortise is normally aligned. No suspicious bony lesions . Soft tissues: Unremarkable without significant soft tissue swelling. No radiopaque foreign body. IMPRESSION: Unremarkable ankle radiographs Reviewed by: Cuba Villa MD on 01/12/2023 6:37 PM [facility] Approved by: Cuba Villa MD on 01/12/2023 6:37 PM [facility] Station ID: [id number]
== END 2023-01-12 13:54 | disposition home or self-care (01) ==
LOC: DI.S 13:53
PROVIDERS: ATTEND Physician Assistant Medical
DX: E11.621 Type 2 diabetes mellitus with foot ulcer (principal)

== ENCOUNTER 2023-05-11 11:05 | Outpatient (CLI) | payer MEDICARE, OTHER ==
[2023-05-11 20:34] LABS: ESTIMATED AVERAGE GLUCOSE 131 mg/dL (70-100); HEMOGLOBIN A1c% 6.2 % (4.27-6.07)
== END 2023-05-11 11:06 | disposition home or self-care (01) ==
LOC: LAB.S 11:05
PROVIDERS: ATTEND Registered Nurse
DX: E11.9 Type 2 diabetes mellitus without complications (principal)
CPT/HCPCS: 36415; 83036

== ENCOUNTER 2023-10-10 20:55 | Outpatient (CLI) | payer MEDICARE, OTHER | END 2023-10-10 23:59 | disposition critical access hospital (66) | LOC: EMS 20:55 | DX: R06.02 Shortness of breath (principal); R53.1 Weakness; R53.83 Other fatigue | CPT/HCPCS: A0425; A0429 ==

== ENCOUNTER 2023-10-10 21:15 | Emergency (ER) | payer MEDICARE, OTHER ==
--- NOTE | 2023-10-10 21:53 | ED Physician Documentation ---
PD HPI DYSPNEA - Stated complaint Stated Complaint: SOA/WEAKNESS - Chief complaint Chief Complaint: Resp - History obtained from History obtained from: Patient, EMS - History of Present Illness Pain level max: 0 - Additional information Additional information: 73-year-old male presents to the emergency department with dyspnea. No other real history is available. did not accompany the patient. Patient unable to give his own history. EMS does not know much else about the patient other than he has a history of lung cancer and had part of his left lung removed. No treatment was given en route other than increasing the patient's oxygen to a nonrebreather. He reportedly uses 3-1/2 L at home at baseline. Upon review of the patient's outpatient chart it appears that he has a history of a left upper lobectomy secondary to lung cancer in 2002. Does not appear to be seen an oncologist or air export coordinator currently. Does use oxygen at home as well as nebulizer treatments, unclear if he has been getting these or not. He is also diabetic. We will attempt to contact his to obtain further information. Review of Systems Unable to obtain: Confused PD PAST MEDICAL HISTORY - Past Medical History Past Medical History: Yes Cardiovascular: High cholesterol, [place] Respiratory: COPD, Emphysema, Shortness of breath Endocrine/Autoimmune: Type 2 diabetes GI: None : None HEENT: None Psych: None Musculoskeletal: None Derm: None - Past Surgical History Past Surgical History: Yes Cardiovascular: Cardiac catheterization, Angioplasty - Present Medications Home Medications: Ambulatory Orders Medication Instructions Recorded Confirmed Lovastatin [Altoprev] 40 mg PO DAILY 08/26/14 12/29/14 Metoprolol Tartrate 25 mg PO DAILY 08/26/14 12/29/14 glipiZIDE [Glucotrol] 5 mg PO DAILY 08/26/14 12/29/14 lisinopriL [Lisinopril] 5 mg PO DAILY 08/26/14 12/29/14 metFORMIN [Glucophage] 500 mg PO DAILY 08/26/14 12/29/14 Albuterol Sulfate [Proair Hfa 8.5 gm IH QID #1 hfa.aer.ad 12/29/14 Inhaler] Beclomethasone 80 Mcg [Qvar 80] 1 puffs INH BID #1 inhaler 12/29/14 Benzonatate [Tessalon] 100 mg PO TID #30 capsule 12/29/14 Clopidogrel Bisulfate [Plavix] 75 mg PO DAILY 12/29/14 12/29/14 Loperamide HCl [Diamode] 2 mg PO Q6H PRN #15 tablet 12/29/14 cilostazoL [Cilostazol] 50 mg PO DAILY 12/29/14 12/29/14 - Allergies Allergies/Adverse Reactions: Allergies Allergy/AdvReac Type Severity Reaction Status Date / Time lidocaine Allergy Rash Verified 10/10/23 21:24 - Social History Does the pt smoke?: Yes Smoking Status: Current every day smoker Does the pt drink ETOH?: No Does the pt have substance abuse?: No PD ED PE NORMAL - Vitals Vital signs reviewed: Yes - General General: Other (decreased responsiveness, mouth breathing on non-rebreather) - HEENT HEENT: Moist mucous membranes, Pharynx benign - Neck Neck: Supple, no meningeal sign - Cardiac Cardiac: RRR, Strong equal pulses - Respiratory Respiratory: Other (diminished breath sounds bilaterally. ) - Abdomen Abdomen: Soft, Non tender, Non distended - Derm Derm: Warm and dry - Extremities Extremities: No edema, No calf tenderness / cord - Neuro Neuro: Other (drowsy) Results - Vitals Vitals: Vital Signs - 24 hr 10/10/23 10/10/23 10/10/23 21:24 21:55 22:22 Temperature 36.9 C 99.3 C H Heart Rate 105 H 97 102 H Respiratory 30 H 20 30 H Rate Blood Pressure 157/96 H 147/86 H O2 Saturation 83 L 99 If not protocol 10 15 : Oxygen Flow, liters/minute 10/10/23 10/10/23 10/11/23 23:15 23:25 00:11 Temperature 36.5 C Heart Rate 96 98 93 Respiratory 20 28 H 24 Rate Blood Pressure 141/72 H 141/79 H O2 Saturation 98 94 If not protocol 8 12 12 : Oxygen Flow, liters/minute Oxygen O2 Source Oxymizer Oxygen Flow Rate 15 - EKG (time done) 2212 EKG releavant findings:: EKG personally interpreted by author of this note. Relevant findings are: Rate: Rate (enter#) (101) Rhythm: Sinus tachycardia [place]: Normal Intervals: Normal NM QRS: Normal Ischemia: Non specific changes - Labs Labs: Laboratory Tests 09/02/24 09/02/24 09/02/24 21:47 21:50 21:50 WBC 8.3 RBC 5.02 Hgb 14.9 Hct 50.3 MCV 100.2 H MCH 29.7 MCHC 29.6 L RDW 14.1 Plt Count 162 MPV 9.4 Neut # (Auto) 6.2 Lymph # (Auto) 1.0 L [place] # (Auto) 0.8 Eos # (Auto) 0.1 Baso # (Auto) 0.1 Absolute Nucleated RBC 0.00 Nucleated RBC % 0.0 Sodium 140 Potassium 5.5 H Chloride 101 Carbon Dioxide 37 H Anion Gap 2.0 L BUN 17 Creatinine 1.2 Estimated GFR (MDRD) 59 L Glucose 238 H Lactic Acid Calcium 8.3 L Total Bilirubin 0.8 AST 20 ALT 15 Alkaline Phosphatase 112 Troponin I High Sens B-Natriuretic Peptide Total Protein 7.4 Albumin 4.0 Globulin 3.4 Albumin/Globulin Ratio 1.2 Lipase 12 Nasal Adenovirus (PCR) NOT DETECTED Nasal B. parapertussis DNA (PCR) NOT DETECTED Nasal Coronavir 229E PCR NOT DETECTED Nasal Coronavir HKU1 PCR NOT DETECTED Nasal Coronavir NL63 PCR NOT DETECTED Nasal Coronavir OC43 PCR NOT DETECTED Nasal Enterovir/Rhinovir PCR NOT DETECTED Nasal Influenza B PCR NOT DETECTED Nasal Influenza A PCR NOT DETECTED Nasal Parainfluen 1 PCR NOT DETECTED Nasal Parainfluen 2 PCR NOT DETECTED Nasal Parainfluen 3 PCR NOT DETECTED Nasal Parainfluen 4 PCR NOT DETECTED Nasal RSV (PCR) NOT DETECTED Nasal B.pertussis DNA PCR NOT DETECTED Nasal C.pneumoniae (PCR) NOT DETECTED Nino Human Metapneumo PCR NOT DETECTED Nasal M.pneumoniae (PCR) NOT DETECTED Nasal SARS-CoV-2 (PCR) NOT DETECTED 10/10/23 10/10/23 10/10/23 21:50 21:50 22:06 WBC RBC Hgb Hct MCV MCH MCHC RDW Plt Count MPV Neut # (Auto) Lymph # (Auto) [place] # (Auto) Eos # (Auto) Baso # (Auto) Absolute Nucleated RBC Nucleated RBC % Sodium Potassium Chloride Carbon Dioxide Anion Gap BUN Creatinine Estimated GFR (MDRD) Glucose Lactic Acid 0.7 Calcium Total Bilirubin AST ALT Alkaline Phosphatase Troponin I High Sens 57.1 H* B-Natriuretic Peptide 625 H Total Protein Albumin Globulin Albumin/Globulin Ratio Lipase Nasal Adenovirus (PCR) Nasal B. parapertussis DNA (PCR) Nasal Coronavir 229E PCR Nasal Coronavir HKU1 PCR Nasal Coronavir NL63 PCR Nasal Coronavir OC43 PCR Nasal Enterovir/Rhinovir PCR Nasal Influenza B PCR Nasal Influenza A PCR Nasal Parainfluen 1 PCR Nasal Parainfluen 2 PCR Nasal Parainfluen 3 PCR Nasal Parainfluen 4 PCR Nasal RSV (PCR) Nasal B.pertussis DNA PCR Nasal C.pneumoniae (PCR) Nino Human Metapneumo PCR Nasal M.pneumoniae (PCR) Nasal SARS-CoV-2 (PCR) - Rads (name of study) cxr Relevant Findings:: Final report received, See rad report PD Medical Decision Making - ED course Complexity details: reviewed results, re-evaluated patient, considered differ ential, d/w patient ED course: Reviewed the patient's outpatient records, unable to contact the to obtain further history. Appears to have a remote history of lung cancer. Reportedly had refused to see a air export coordinator or go to pulmonary rehab. Chest x-ray concerning for pulmonary edema, but clinically appears to be a COPD exacerbation with likely pneumonia. Given IV Solu-Medrol, DuoNeb, azithromycin, Rocephin. Changed to an oxi mask as he is a mouth breathing patient primarily. No beds available here pedro, will board in the emergency department and continue treatment for COPD/pneumonia. Patient signed out to the oncoming emergency department physician. Departure - Departure Clinical Impression: Severe chronic obstructive pulmonary disease, Wheezing Pneumonia Qualifiers: Pneumonia type: due to unspecified organism Laterality: unspecified laterality Lung location: unspecified part of lung Qualified Code(s): J18.9 - Pneumonia, unspecified organism Condition: Serious Forms: PCP List
[2023-10-10] MEDS: IPRATROPIUM/ALBUTEROL 3 ML NEB INH STA (21:55)
[2023-10-10 22:04] LABS: BASOPHILS # (AUTO) 0.1 10^3/uL (0.0-0.1); EOSINOPHILS # (AUTO) 0.1 10^3/uL (0.0-0.7); EOSINOPHILS % (AUTO) 1.1 %; HCT - HEMATOCRIT 50.3 % (42.0-52.0); HGB - HEMOGLOBIN 14.9 g/dL (14.0-18.0); LYMPHOCYTES % (AUTO) 12.1 %; MEAN CORPUSCULAR HEMOGLOBIN 29.7 pg (27.0-31.0); MEAN CORPUSCULAR HGB CONC 29.6 g/dL (32.0-36.0); MEAN CORPUSCULAR VOLUME 100.2 fL (80.0-94.0); MEAN PLATELET VOLUME 9.4 fL (7.4-11.4); MONOCYTES # (AUTO) 0.8 10^3/uL (0.0-1.0); MONOCYTES % (AUTO) 9.5 %; NEUTROPHILS # (AUTO) 6.2 10^3/uL (1.5-6.6); NEUTROPHILS % (AUTO) 74.5 %; PLT - PLATELET COUNT 162 10^3/uL (130-450); RED BLOOD COUNT 5.02 10^6/uL (4.70-6.10); RED CELL DISTRIBUTION WIDTH 14.1 % (12.0-15.0); WHITE BLOOD COUNT 8.3 x10^3/uL (4.8-10.8)
[2023-10-10] MEDS: SODIUM CHLORIDE 0.9% 1,000 ML IV STA (22:04)
[2023-10-10] MEDS: methylPREDNISolone SUCCINATE 125 MG/2 ML VIAL IVP STA (22:04)
[2023-10-10 22:56] LABS: ALBUMIN/GLOBULIN RATIO 1.2 (1.0-2.2); BILIRUBIN,TOTAL 0.8 mg/dL (0.2-1.0); CALCIUM 8.3 mg/dL (8.5-10.3); CREATININE 1.2 mg/dL (0.6-1.3); TOTAL PROTEIN 7.4 g/dL (6.4-8.9)
[2023-10-10 22:58] LABS: B. PARAPERTUSSIS- RESP PCR PAN NOT DETECTED; B. PERTUSSIS- RESP PCR PANEL NOT DETECTED; C. PNEUMONIAE- RESP PCR PANEL NOT DETECTED; CORONAVIRUS 229E-RESP PCR NOT DETECTED; CORONAVIRUS HKU1-RESP PCR NOT DETECTED; CORONAVIRUS NL63-RESP PCR NOT DETECTED; CORONAVIRUS OC43-RESP PCR NOT DETECTED; HUMAN METAPNEUMOVIRUS NOT DETECTED; INFLUENZA A- RESP PCR PANEL NOT DETECTED; INFLUENZA B - RESP PCR PANEL NOT DETECTED; M. PNEUMONIAE- RESP PCR PANEL NOT DETECTED; PARAINFLUENZA VIRUS 1 NOT DETECTED; PARAINFLUENZA VIRUS 2 NOT DETECTED; PARAINFLUENZA VIRUS 3 NOT DETECTED; PARAINFLUENZA VIRUS 4 NOT DETECTED; RHINOVIRUS/ENTEROVIRUS NOT DETECTED; RSV- RESP PCR PANEL NOT DETECTED; SARS-CoV-2 -RESP PCR PANEL NOT DETECTED
[2023-10-10 23:04] LABS: POTASSIUM 5.5 mmol/L (3.5-4.5)
--- NOTE | 2023-10-10 23:13 | XRAY Report ---
PROCEDURE: Chest 1V INDICATIONS: dyspnea TECHNIQUE: One view of the chest was acquired. COMPARISON: Chest 2 views 12/06/2022. FINDINGS: Surgical changes and devices: None. Lungs and pleura: No pleural effusions or pneumothorax. Lungs are abnormal with prominent generaliz ed pulmonary edema and asymmetric chronic elevation of the left hemidiaphragm. Mediastinum: Mediastinal contours appear normal. Heart size is normal. Bones and chest wall: No suspicious bony lesions. Overlying soft tissues appear unremarkable. IMPRESSION: Generalized alveolar edema pattern with chronic asymmetric elevation of the left hemidiaphragm. The h eart size does not appear particularly enlarged but this still could represent acute congestive heart failure. Infectious etiology should also be considered.. Reviewed by: Clay Brink MD on 10/10/2023 11:11 PM PDT Approved by: Clay Brink MD on 10/10/2023 11:11 PM PDT Station ID: [id number]
[2023-10-10] MEDS: cefTRIAXone 1 GM VIAL IVP STA (23:21)
[2023-10-10] MEDS: AZITHROMYCIN INJ 500 MG in SODIUM CHLORIDE 0.9% 250 ML IV STA (23:22)
[2023-10-10] MEDS: ALBUTEROL NEB 2.5 MG/3 ML INH STA (23:31)
[2023-10-11 01:25] LABS: ABG BASE EXCESS -0.5 mmol/L (-2.0-3.0); ABG HCO3 34.4 mmol/L (22.0-26.0); ABG OXYGEN SATURATION 96 % (94-98); ABG PO2 95 mmHg (80-100); ABG TCO2 38.1 MMOL/L (21.0-29.0)
[2023-10-11 01:26] LABS: ABG PCO2 123 mmHg (34-45); ABG PH 7.06 (7.35-7.45); ALLEN TEST POSITIVE
[2023-10-11] MEDS ORDERED: PROPOFOL 1000 MG/100 ML 1,000 MG/100 ML BOTTLE IV ONE (01:35)
[2023-10-11] MEDS ORDERED: ETOMIDATE 40 MG/20 ML VIAL IVP ONE (01:35)
[2023-10-11] MEDS ORDERED: PROPOFOL 200 MG/20 ML VIAL IVP ONE (01:36)
[2023-10-11] MEDS ORDERED: ROCURONIUM 50 MG/5 ML VIAL ONE (01:36)
[2023-10-11] MEDS ORDERED: SUCCINYLCHOLINE 200 MG/10 ML VIAL ONE (01:36)
[2023-10-11] MEDS: ETOMIDATE 40 MG/20 ML VIAL IVP STA ×2 (01:58→02:39)
[2023-10-11] MEDS: ROCURONIUM 50 MG/5 ML VIAL IVP STA ×2 (01:59→02:39)
[2023-10-11] MEDS: PROPOFOL 1000 MG/100 ML 1,000 MG/100 ML BOTTLE IV STA (02:02)
--- NOTE | 2023-10-11 02:10 | ED Physician Documentation ---
ED Addendum - Addendum Addendum: 10/11/23 03:33 I received signout/turnover of care in this patient from Dr. Wang; please see his note for complete H&P. At the time of turnover of care, the plan was to hold the patient in [facility] ED until beds hopefully become available later this morning. The patient presented with dyspnea, hypoxia, and lethargy of unclear etiology. He is given rocephin and zithromax for possible pneumonia on cxr. Early in my shift, I was alerted by this patient's ED RN that the patient was exhibiting signs of respiratory distress, specifically "guppy breathing". I evaluated the patient and find that he is indeed tachypneic with a pattern of respirations that are strongly S/O air hunger. An ABG is undertaken with concerning findings of: 7.06/123/95/34 (this was drawn while patient is on 100% NRB 15 l/min). He is obtunded: opens eyes briefly if repeatedly stimulated with verbal combined with non-painful stimulus, does not verbalize nor follow commands, and almost immediately falls back asleep (closes eyes again). I had a phone conversation with the patient's listed contact in [facility] (Pemasabi Clements). She says that the patient had a very difficult experience after being intubated many years ago in conjunction with his lobectomy and had expressed to her that he never wanted to be intubated again. However, she also notes that he signed a POLST form that indicates full code and full interventions, and that he signed this form AFTER he had told her that he would not want to be put through intubation. She says that she (Pema Robintoyin) has documentation at home that indicate she is both the POA and designated medical decision-maker for this patient in instances of incapacitation. I explained to her that the patient arterial blood gas (explained in layperson terms) was highly concerning and, combined with his clinical appearance, indicate critical need for immediate intubation. She agrees with this procedure, particularly considering his POLST form indicates this is in accordance with patient's wishes. I intubated the patient as per procedure note, above. I also undertook a CTH considering Delma Allen indicates to me that she called 911 as much out of concern for the dyspnea as for his lethargy. She says his baseline is AAOx3. She says there was no injury/fall that she was aware of, but that he started to act increasingly lethargic over the past 1-2 days. While the radiologist interpretation of the CT study is not available at the time of transfer, I reviewed these images and I do not note any concerning findings (including no evidence of mass, intracranial hemorrhage). I discussed this case with Dr. Molina (lumber stacker operator at [facility]). He accepts patient for transfer to that facility. Patient is transferred via air Patient began to exhibit soft blood pressures (90s systolic), which subsequently trended down into the 80s (systolic). For this reason, the propofol drip that had been started for post-intubation sedation was stopped and he is then given a weight-based dose (1.5 mg/kilogram) of IV ketamine. While this had the desired effect for sedation, his blood pressures trended down even further and thus (peripheral) norepinephrine drip is initiated. Note that the flight crew were already at the bedside evaluating the patient and this is why this medication will be given through peripheral IV rather than hold up the transfer trying to obtain central venous access. Procedures - Intubation Time of Intubation: 02:00 Intubation Method: orotracheal Tube Size (cm): 8.5 Breath Sounds after Intubation: equal Intubation Complications: no complications Post Intubation Xray: Yes Progress/Xray Impression: meds used for intubation: rocuronium, etomidate. Glidoscope used
[2023-10-11 02:29] VITALS: O2SAT 100
[2023-10-11] MEDS: KETAMINE 500 MG/10 ML VIAL IVP STA (02:43)
[2023-10-11] MEDS: MIDAZOLAM DRIP 50 MG/50 ML 50 MG/50 ML BAG IV STA (03:04)
[2023-10-11] MEDS: SODIUM CHLORIDE 0.9% 1,000 ML IV STA (03:07)
[2023-10-11] MEDS ORDERED: NOREPINEPHRINE/0.9 % NS 8 MG/250 ML BAG IV ONE (03:14)
[2023-10-11] MEDS: NOREPINEPHRINE/0.9 % NS 8 MG/250 ML BAG IV STA (03:15)
[2023-10-11 04:19] VITALS: BP 124/70
--- NOTE | 2023-10-11 08:36 | XRAY Report ---
PROCEDURE: Chest for Line Placement INDICATIONS: post-intubation TECHNIQUE: One view of the chest was acquired. COMPARISON: None. FINDINGS: Surgical changes and devices: Endotracheal tube tip projects 2.7 cm above the min. Gastric tube s patricia port projects over the GE junction. Lungs and pleura: Moderate left pleural effusion and small right pleural effusion. Diffuse interstit ial opacities with superimposed hazy basilar opacities. Mediastinum: Mediastinal contours appear normal. Heart size is likely enlarged. Bones and chest wall: No suspicious bony lesions. Overlying soft tissues appear unremarkable. IMPRESSION: Endotracheal tube tip projects 2.7 cm above the min. Consider 1 cm retraction. Gastric tube side port projects over the GE junction. Recommend 5 cm advancement. Moderate left pleural effusion and small right pleural effusion. Diffuse interstitial opacities, concerning for pulmonary edema. Hazy bibasilar airspace opacities, could represent infection or atelectasis. Findings are concordant with preliminary interpretation provided by [facility]. Reviewed by: Alessio Otero MD on 10/11/2023 8:35 AM PDT Approved by: Alessio Otero MD on 10/11/2023 8:35 AM PDT Station ID: [id number]
--- NOTE | 2023-10-11 08:37 | CT Report ---
PROCEDURE: Head WO INDICATIONS: AMS TECHNIQUE: Noncontrast 4.5 mm thick angled axial sections acquired from the foramen magnum to the vertex. For r adiation dose reduction, the following was used: automated exposure control, adjustment of mA and/or kV according to patient size. COMPARISON: None. FINDINGS: Image quality: Suboptimal due to motion artifact. CSF spaces: Basal cisterns are patent. No extra-axial fluid collections. Ventricles are normal in size and shape. Brain: No midline shift. No intracranial masses or hemorrhage. Haskins-white matter interface is norm al. Skull and face: Calvarium and visualized facial bones are intact, without suspicious lesions. Sinuses: Visualized sinuses and mastoids are clear. IMPRESSION: Suboptimal evaluation due to motion artifact. No acute intracranial process. Findings are concordant with preliminary interpretation provided by [facility]. Reviewed by: Alessio Otero MD on 10/11/2023 8:36 AM PDT Approved by: Alessio Otero MD on 10/11/2023 8:36 AM PDT Station ID: [id number]
== END 2023-10-11 04:15 | disposition short-term general hospital (02) ==
LOC: EDUNIT# → ED 21:15
DX: J44.0 Chronic obstructive pulmonary disease with (acute) lower respiratory infection (principal); J18.9 Pneumonia, unspecified organism; R06.82 Tachypnea, not elsewhere classified; R40.1 Stupor; I95.9 Hypotension, unspecified; F17.200 Nicotine dependence, unspecified, uncomplicated
CPT/HCPCS: 31500; 36415; 51702; 80053; 82803; 83605; 83690; 83880; 84484; 85025; 87040; 87633; 93005; 94002; 94640; 94664; 99285